=== PATIENT | female | born 1940 | race Caucasian/White ===

== ENCOUNTER → 2018-09-13 | Outpatient (CLI) | payer OTHER, BC | LOC: FIMAGING 09:27 | PROVIDERS: ATTEND Orthopaedic Surgery | DX: Z01.818 Encounter for other preprocedural examination (principal); M17.12 Unilateral primary osteoarthritis, left knee ==

== ENCOUNTER 2018-10-07 05:24 | Inpatient (IN) | payer OTHER, BC ==
[2018-10-07] MEDS ORDERED: DEXAMETHASONE 4 MG/ML VIAL IVP ONE (06:00)
[2018-10-07] MEDS ORDERED: ceFAZolin 2 GM/DEXTROSE 100 ML IV ONE (06:00)
[2018-10-07] MEDS ORDERED: ROPIVACAINE 0.2% 80 MG, EPINEPHrine 0.2 MG, KETOROLAC TROMETHAMINE 30 MG in SYRINGE 0 ML IU ONE (06:00)
[2018-10-07] MEDS ORDERED: TRANEXAMIC ACID 3,000 MG in NS (SYRINGE) 50 ML IRR ONE (06:00)
[2018-10-07] MEDS ORDERED: ACETAMINOPHEN 325 MG TAB PO ONE (06:00)
[2018-10-07] MEDS ORDERED: FAMOTIDINE 20 MG TAB PO ONE (06:00)
[2018-10-07] MEDS ORDERED: LR 1,000 ML IV ONE (06:01)
[2018-10-07] MEDS ORDERED: LIDOCAINE 1% 2 ML INJ ID PRN (06:01)
--- NOTE | 2018-10-07 06:18 | PDHPUP ---
History & Physical Update H&P update statement: This history and physical update is based on an assessment of the patient which was completed after admission or registration (within 24 hours), but prior to the surgery/procedure. H&P update: H&P reviewed & patient examined, no change in patient's condition since H&P completed
--- NOTE | 2018-10-07 06:48 | PDANEPAE ---
ANE History of Present Illness Knee OA ANE Past Medical History - Cardiovascular History Hx Hypertension: No Hx Arrhythmias: No Hx Chest Pain: No Hx Coronary Artery / Peripheral Vascular Disease: No Hx CHF / Valvular Disease: No Hx Palpitations: No - Pulmonary History Hx COPD: No Hx Asthma/Reactive Airway Disease: No Hx Recent Upper Respiratory Infection: No Hx Oxygen in Use at Home: No Hx Sleep Apnea: No Sleep Apnea Screening Result - Last Documented: Negative - Neurologic History Hx Cerebrovascular Accident: No Hx Seizures: No Hx Dementia: No - Endocrine History Hx Diabetes: No - Renal History Hx Renal Disorders: No - Liver History Hx Hepatic Disorders: No - Neurological & Psychiatric Hx Hx Neurological and Psychiatric Disorders: No - Cancer History Hx Cancer: No - Congenital Disorder History Hx Congenital Disorders: No - GI History Hx Gastrointestinal Disorders: No - Other Health History Other Health History: WEARS SUPPORT HOSE FOR POOR CIRCULATION IN LEGS. RECENT VAG BURNING - USED OTC CREAM - Chronic Pain History Chronic Pain: Yes (ASHWINI KNEE PAIN) - Surgical History Prior Surgeries: HYSTERECTOMY ANE Review of Systems Review of Systems: - Exercise capacity METS (RN): 5 METS ANE Patient History - Allergies Allergies/Adverse Reactions: adhesive tape Allergy (Verified 09/24/18 17:19) SKIN TEARS EASILY W/TAPE - Home Medications Home Medications: Cholecalciferol Vit D3 [Vitamin D3 2000 units tab (OTC)] 10,000 units PO DAILY@ 12 09/09/18 [Last Taken 09/23/18] Cyclobenzaprine [Flexeril 10 MG (*)] 10 mg PO TID PRN 09/09/18 [Last Taken 09/23] Estrogens,Conjugated [Premarin Vaginal (*)] 1 ambrocio VG Q3D 09/09/18 [Last Taken ] Herbals/Supplements -Info Only 1 ea PO DAILY 09/09/18 [Last Taken 10/04/18] Ibuprofen [Motrin (*)] 600 mg PO BID@06,12 09/09/18 [Last Taken 09/30/18] Meloxicam 15 mg PO HS 09/09/18 [Last Taken 09/30/18] Multivitamins [Multivitamin (*)] 1 each PO DAILY 09/09/18 [Last Taken 09/23/18] Tetrahydrozoline 0.05% [Visine (*)] 1 drop EACHEYE BID 09/09/18 [Last Taken 21:00] Vitamin B Complex [Vitamin B Complex (OTC)] 1 each PO DAILY@12 09/09/18 [Last Taken 09/23/18] - NPO status NPO Status: no food or drink >8 hours NPO Since - Liquids (Date): 10/07/18 NPO Since - Liquids (Time): 06:15 NPO Since - Solids (Date): 10/06/18 NPO Since - Solids (Time): 22:00 - Anes Hx Anes Hx: no prior problems (No prior RA) - Smoking Hx Smoking Status: Never smoked - Family Anes Hx Family Hx Anesthesia Complications: NEG ANE Labs/Vital Signs - Vital Signs Blood Pressure: 134/93 Heart Rate: 85 Respiratory Rate: 7 O2 Sat (%): 94 Height: 170.18 cm Weight: 95.254 kg ANE Physical Exam - Airway Neck exam: FROM Mallampati Score: Class 2 Mouth exam: dentures - Pulmonary Pulmonary: no respiratory distress - Cardiovascular Cardiovascular: regular rate and rhythym - ASA Status ASA Status: II ANE Anesthesia Plan Anesthesia Plan: MAC, spinal Regional Anesthesia: adductor canal FNB
[2018-10-07] MEDS ORDERED: TRANEXAMIC ACID 3,000 MG/50 ML BAG IRR ONE (06:51)
[2018-10-07] MEDS ORDERED: MIDAZOLAM 2 MG/2 ML VIAL IVP ONE (06:59)
[2018-10-07] MEDS ORDERED: MIDAZOLAM 2 MG/2 ML VIAL ONE (06:59)
[2018-10-07] MEDS ORDERED: PROPOFOL/EMULSION 500 MG/50 ML BOTTLE IV ONE ×2 (07:04→07:54)
[2018-10-07] MEDS ORDERED: BUPIVACAINE/DEXTROSE 7.5MG/ML 2 ML SPINAL AMP SP ONE (07:05)
[2018-10-07] MEDS ORDERED: LIDOCAINE 2% 5 ML SDV ONE (07:09)
[2018-10-07] MEDS ORDERED: ROPIVACAINE HCL 150 MG/30 ML INJ ONE (07:48)
[2018-10-07] MEDS ORDERED: ONDANSETRON 4 MG/2 ML VIAL IVP PRN ×2 (07:53→08:39)
[2018-10-07] MEDS ORDERED: NALOXONE HCL 0.4 MG/ML INJ IVP PRN (07:53)
[2018-10-07] MEDS ORDERED: LACTULOSE 20 GM/30 ML UDCUP PO PRN (08:39)
[2018-10-07] MEDS ORDERED: PROMETHAZINE HCL 25 MG/ML INJ IVP PRN (08:39)
[2018-10-07] MEDS ORDERED: diphenhydrAMINE 25 MG CAP PO PRN (08:39)
[2018-10-07] MEDS ORDERED: TEMAZEPAM 15 MG CAP PO PRN (08:39)
[2018-10-07] MEDS ORDERED: DIPHENOXYLATE/ATROPINE LOMOTIL 1 TAB PO PRN (08:39)
[2018-10-07] MEDS ORDERED: METOCLOPRAMIDE 10 MG/2 ML VIAL IVP PRN (08:39)
[2018-10-07] MEDS ORDERED: BISACODYL 10 MG SUPP PR PRN (08:39)
[2018-10-07] MEDS ORDERED: ONDANSETRON DISINTEGRATING 4 MG TAB PO PRN (08:39)
[2018-10-07] MEDS ORDERED: CYCLOBENZAPRINE 10 MG TAB PO PRN ×2 (08:39→08:42)
[2018-10-07] MEDS ORDERED: POLYETHYLENE GLYCOL 3350 17 GM PKT PO PRN (08:39)
[2018-10-07] MEDS ORDERED: PROMETHAZINE HCL 25 MG SUPPR PR PRN (08:39)
[2018-10-07] MEDS ORDERED: MAGNESIUM HYDROXIDE 30 ML UDCUP PO PRN (08:39)
--- NOTE | 2018-10-07 08:39 | POSTOPPROG ---
Post Op Note Date of Operation: 10/07/18 Surgeon: Mabel Ennis Brush And Broom Clipper: connie ennis PA-C Anesthesiologist: dr. loomis Anesthesia: Spinal, Other (Specify) (adductor canal block) Pre-op Diagnosis: left knee OA Post-op Diagnosis: same Indication: left knee pain Procedure: L TKA robot assisted Findings: severe knee OA Inf/Abcess present in the surg proc area at time of surgery?: No EBL: 50-100
--- NOTE | 2018-10-07 08:52 | POSTANESTH ---
Post Anesthetic Evaluation Cardiovascular Status: Similar to Pre-Op Cond Respiratory Status: Similar to Pre-op Cond. Level of Consciousness/Mental Status: Alert and Oriented Pain Control: Adequate, Prn Tx Ordered Nausea/Vomiting Control: Adequate, Prn Tx Ordered Complications Possibly Related to Anesthesia: None Noted (AC block done in PACU without diff.)
[2018-10-07] MEDS ORDERED: LR 1,000 ML IV SCH (09:00)
[2018-10-07] MEDS ORDERED: fentaNYL 100 MCG/2 ML INJ ONE (09:14)
[2018-10-07] MEDS ORDERED: oxyCODONE IR 5 MG TAB ONE (09:14)
[2018-10-07] MEDS ORDERED: HYDROmorphONE/DILAUDID 2 MG/ML INJ ONE (09:14)
[2018-10-07] MEDS: fentaNYL 100 MCG/2 ML INJ IVP PRN ×2 (09:19→09:29)
[2018-10-07] MEDS: HYDROmorphONE/DILAUDID 2 MG/ML INJ IVP PRN ×2 (09:22→09:30)
[2018-10-07] MEDS: SENNOSIDES/DOCUSATE SODIUM TAB PO SCH ×2 (11:19→20:38)
[2018-10-07] MEDS: TETRAHYDROZOLINE 0.05% EACHEYE SCH ×2 (11:21→20:52)
--- NOTE | 2018-10-07 12:09 | PDMN ---
Medical Necessity Medical necessity: Pt meets IP criteria as of 10/07/2018 per PA for L TKA; los > 2 mn due to advanced age and pain control.
[2018-10-07] MEDS: ACETAMINOPHEN 325 MG TAB PO SCH ×3 (12:17→23:51)
[2018-10-07] MEDS: oxyCODONE IR 5 MG TAB PO PRN ×2 (14:48→20:41)
[2018-10-07] MEDS: ceFAZolin 2 GM/DEXTROSE 100 ML IV SCH ×2 (14:59→23:50)
[2018-10-07] MEDS: ASPIRIN 81 MG CHEWABLE TAB PO SCH (20:38)
[2018-10-07] MEDS: FAMOTIDINE 20 MG TAB PO SCH (20:38)
[2018-10-08] MEDS: ACETAMINOPHEN 325 MG TAB PO SCH ×2 (04:55→11:56)
[2018-10-08 07:47] VITALS: BP 119/76
--- NOTE | 2018-10-08 08:36 | GOP ---
DATE OF OPERATION: 10/07/2018 SURGEON: Olivia Vaughan MD HOT DOG VENDOR: Kiara Vaughan, JOVAN. ANESTHESIA: Spinal. PREOPERATIVE DIAGNOSIS: Left knee osteoarthritis. POSTOPERATIVE DIAGNOSIS: Left knee osteoarthritis. PROCEDURE PERFORMED: Left total knee arthroplasty with computer navigation, robotic assist. FINDINGS: ESTIMATED BLOOD LOSS: 30 cc. INDICATIONS: The patient is a 78-year-old female with severe and progressive pain and deformity of t he left knee unresponsive to conservative care. The risks and benefits of surgical intervention were explained in detail. DESCRIPTION OF PROCEDURE: The patient was brought to the operative room and placed on the table in t he supine position. Spinal anesthesia was induced without difficulty. A pneumatic tourniquet was appl ied about the left proximal thigh, and the leg was prepped and draped in a sterile fashion. The leg h older was applied. After exsanguination by elevation the tourniquet was inflated to 250 mmHg. Incision was made anterior medial from the tibial tuberosity to a point 2 cm proximal to the superior pole of the patella. Medial parapatellar arthrotomy was carried out from the superior pole of the pa tella and posteriorly in line with the fibers of the Type II VMO. The medial collateral ligament was elevated and the infrapatellar fat pad was resected. The patella was everted and the articular surface was excised. A 32 mm patellar button was placed. Attention was turned first to the distal aspect of the femur. After exposure of the femur, 2 half pi ns were placed for fixation of the femoral array. In a similar fashion, 2 pins were placed anteromed ial on the tibia for fixation of the tibial array. External land marking and registration of the hip center were performed without difficulty. Internal femoral and tibial registration was carried out without difficulty and the femoral and tibial checkpoints were placed and verified for accuracy. Attention was turned to the femur. The foot print for the size 4 femoral component was cut with the saw using the [employer] robotic system and verified for accuracy against the CT based plan. In a similar f ashion, the saw was used to cut the footprint for the size 5 tibial component using the [employer] system an d verified for accuracy against the CT based plan. The tibial articular surface was excised without d ifficulty, followed by the intercondylar box cut. The knee was extended and the remnants of the medial and lateral meniscus were excised. The posterior capsule was injected with ropivacaine, epinephrine and Toradol. A size 5 tibial tray was positioned . Trial reduction was then carried out. There was excellent range of motion, alignment, and stability using the 5 x 9 mm polyethylene. All trials were then removed. The joint was thoroughly irrigated and carefully dried. The press-fit c omponents were implanted. The permanent 9 mm polyethylene was placed without difficulty. The tourniquet was deflated and all bleeders were coagulated. The wound was thoroughly irrigated and closed using interrupted sutures of 2-0 Vicryl for the joint capsule. The subcu was closed with 3-0 V icryl and the skin with 4-0 Monocryl. Dermabond and Steri-Strips were applied followed by a compress ida dressing. The patient was then moved from the operating room to the recovery room in good conditi on, having tolerated the procedure well. PATHOLOGY: Severe tricompartmental osteoarthritis. /[id number]/MODL
[2018-10-08] MEDS: ASPIRIN 81 MG CHEWABLE TAB PO SCH (08:45)
[2018-10-08] MEDS: FAMOTIDINE 20 MG TAB PO SCH (08:46)
[2018-10-08] MEDS: SENNOSIDES/DOCUSATE SODIUM TAB PO SCH (08:46)
[2018-10-08] MEDS: oxyCODONE IR 5 MG TAB PO PRN (08:52)
--- NOTE | 2018-10-08 09:57 | ASDISCHSUM ---
Discharge Information Plan Status:Home with No Needs Medically Cleared to Leave:10/07/2018 Discharge Date:10/07/2018 CM D/C Disposition:Home, Routine, Self-Care ADT D/C Disposition:Home, Routine, Self-Care Projected Discharge Date:10/07/2018 Transportation at D/C: Discharge Delay Reason: Follow-Up Date:10/07/2018 Discharge Slot: Final Diagnosis: Placement Information Patient Contact Information Contact Name:SONIYA Relationship:Dirk Address: City: [place] Phone: State/Zip Code: Email: Financial Information Financial Class:Medicare Primary Plan Desc:MEDICARE INPATIENT Primary Plan Number:[id number] Secondary Plan Desc: OUT OF [facility] Secondary Plan Number:[id number] Assessment Information LACE LACE Length of stay for Answers: 1 day current admission Acuity / Level of Answers: Yes Care: Did the patient have an inpatient admission? Comorbidities - select Answers: Opioid dependence all that apply / Chronic pain # of Emergency department Answers: 0 visits in the last 6 months Score: 8 Date Signed: 10/08/2018 09:55 AM Electronically Signed By:Kadie Núñez RN Case Management Discharge Plan Note Case Management Discharge Discharge Order Complete? Answers: Yes Discharge Comments Notes: 10/08/2018 Case Management Note There are no case management d/c needs identified. Pt to discharge home with follow up as directed. Date Signed: 10/08/2018 09:56 AM Electronically Signed By:Kadie Núñez RN Intervention Information Intervention Type:*Incorrect Registration Date of Service:10/07/2018 12:05 PM Patient Type:Observation Staff Member:Keyanna Armas Hours: Discipline: Severity: Comment: incorrect registration on [facility]
[2018-10-08] MEDS: TETRAHYDROZOLINE 0.05% EACHEYE SCH (10:51)
--- NOTE | 2018-10-08 11:14 | SOAPPROG ---
SOAP Progress Note Assessment/Plan: Assessment: Patient is doing well POD 1 s/p L TKA Pain management: pain is well controlled on oral pain meds. VTE ppx: recommend aspirin 81 mg BID for 4 weeks, cont SUJATHA and SCDs D/c planning: Patient has done better than anticipated. Pain has been minimal and patient has tolerated narcotic pain meds well. Patient would prefer to go home today. Ok for discharge to home if patient is released from PT Plan: 10/08/18 11:13 Subjective: Siobhan is doing well today, denies SOB, chest pain and N/V. Objective: Vital Signs Temp Pulse Resp BP Pulse Ox 36.8 C 78 16 119/76 95 10/08/18 07:46 10/08/18 07:46 10/08/18 07:46 10/08/18 07:46 10/08/18 07:46 Laboratory Results 10/08/18 04:47 10/08/18 04:47 10/07/18 10/08/18 10/09/18 05:59 05:59 05:59 Intake Total 1050 263 Output Total 950 Balance 100 263 LLE: incision dressing is clean and dry, NVI, +pf/df ICD10 Worksheet Patient Problems: Problems Problem Status Onset Primary localized osteoarthritis of left knee Acute
== END 2018-10-08 12:23 | disposition home or self-care (01) | DRG 470 ==
LOC: F3E 05:24 → OBSVTOIN 08:42 → F3N 09:51
PROVIDERS: ADMIT Orthopaedic Surgery; ATTEND Orthopaedic Surgery
DX: M17.12 Unilateral primary osteoarthritis, left knee (principal)
CPT/HCPCS: 97116-GP; 97161-GP; 97530-GP; G8978-GP-CI; G8979-GP-CH; G8979-GP-CI; G8980-GP-CI; J0171; J0690; J1100; J1170; J1885; J2250; J2704; J2795; J3010

== ENCOUNTER → 2018-11-18 | Outpatient (CLI) | payer BC, OTHER | END | disposition home or self-care (01) | LOC: FIMAGING 08:35 | PROVIDERS: ATTEND Orthopaedic Surgery | DX: M17.11 Unilateral primary osteoarthritis, right knee (principal) ==

== ENCOUNTER 2018-12-04 06:25 | Inpatient (IN) | payer BC, OTHER ==
[2018-12-04] MEDS ORDERED: ACETAMINOPHEN 325 MG TAB PO ONE (07:09)
[2018-12-04] MEDS ORDERED: FAMOTIDINE 20 MG TAB PO ONE (07:09)
[2018-12-04] MEDS ORDERED: ceFAZolin 2 GM/DEXTROSE 100 ML IV ONE (07:09)
[2018-12-04] MEDS ORDERED: DEXAMETHASONE 4 MG/ML VIAL IVP ONE (07:09)
[2018-12-04] MEDS ORDERED: LR 1,000 ML IV ONE (07:10)
[2018-12-04] MEDS ORDERED: TRANEXAMIC ACID 3,000 MG/50 ML BAG IRR ONE (07:29)
--- NOTE | 2018-12-04 07:47 | PDANEPAE ---
ANE Past Medical History - Cardiovascular History Hx Hypertension: No Hx Arrhythmias: No Hx Chest Pain: No Hx Coronary Artery / Peripheral Vascular Disease: No Hx CHF / Valvular Disease: No Hx Palpitations: No - Pulmonary History Hx COPD: No Hx Asthma/Reactive Airway Disease: No Hx Recent Upper Respiratory Infection: No Hx Oxygen in Use at Home: No Hx Sleep Apnea: No Sleep Apnea Screening Result - Last Documented: Negative - Neurologic History Hx Cerebrovascular Accident: No Hx Seizures: No Hx Dementia: No - Endocrine History Hx Diabetes: No Hypothyroid: No Hyperthyroid: No Obesity: yes, mild - Renal History Hx Renal Disorders: No - Liver History Hx Hepatic Disorders: No - Neurological & Psychiatric Hx Hx Neurological and Psychiatric Disorders: No - Cancer History Hx Cancer: No - Congenital Disorder History Hx Congenital Disorders: No - Other Health History Other Health History: WEARS SUPPORT HOSE FOR POOR CIRCULATION IN LEGS. RECENT VAG BURNING - USED OTC CREAM - Chronic Pain History Chronic Pain: Yes (ASHWINI KNEE PAIN) - Surgical History Prior Surgeries: HYSTERECTOMY ANE Review of Systems Review of Systems: - Exercise capacity Exercise capacity: limited by disability METS (RN): 4 METS ANE Patient History - Allergies Allergies/Adverse Reactions: adhesive tape Allergy (Verified 09/24/18 17:19) SKIN TEARS EASILY W/TAPE - Home Medications Home Medications: Cholecalciferol Vit D3 [Vitamin D3 2000 units tab (OTC)] 10,000 units PO DAILY@ 12 09/09/18 [Last Taken 2 Weeks Ago ~11/20/18] Cyclobenzaprine [Flexeril 10 MG (*)] 10 mg PO TID PRN 09/09/18 [Last Taken 11/27] Herbals/Supplements -Info Only 1 ea PO DAILY 09/09/18 [Last Taken 2 Weeks Ago ~ 11/20/18] Multivitamins [Multivitamin (*)] 1 each PO DAILY 09/09/18 [Last Taken 2 Weeks Ago ~11/20/18] Tetrahydrozoline 0.05% [Visine (*)] 1 drop EACHEYE BID 09/09/18 [Last Taken 2 Days Ago ~12/02/18] Vitamin B Complex [Vitamin B Complex (OTC)] 1 each PO DAILY@12 09/09/18 [Last Taken 2 Weeks Ago ~11/20/18] Estrogens,Conjugated [Premarin 0.625 MG (*)] 0.625 mg PO MOWEFR 11/18/18 [Last Taken 11/27/18] Famotidine [Pepcid 20 MG (*)] 20 mg PO BID PRN 11/18/18 [Last Taken 2 Weeks Ago ~11/20/18] Ibuprofen [Motrin (*)] 400 mg PO BID@08,12 PRN 11/18/18 [Last Taken 11/27/18] Meloxicam 15 mg PO HS PRN 11/18/18 [Last Taken 11/27/18] Sennosides/Docusate Sodium [Senokot-S] 1 tab PO BID 11/18/18 [Last Taken 2 Weeks Ago ~11/20/18] - NPO status NPO Since - Liquids (Date): 12/03/18 NPO Since - Liquids (Time): 19:30 NPO Since - Solids (Date): 12/03/18 NPO Since - Solids (Time): 17:30 - Anes Hx Anes Hx: no prior problems - Smoking Hx Smoking Status: Never smoked Marijuana use: No - Alcohol Use Alcohol Use: Rarely - Family Anes Hx Family Anes Hx: neg - N/A Family Hx Anesthesia Complications: NEG ANE Labs/Vital Signs - Vital Signs Height: 170.18 cm Weight: 92.533 kg ANE Physical Exam - Airway Neck exam: FROM Mallampati Score: Class 2 Mouth exam: poor dentition, dentures - Pulmonary Pulmonary: no respiratory distress, no rales or rhonchi, clear to auscultation - Cardiovascular Cardiovascular: regular rate and rhythym, no murmur, rub, or gallop - ASA Status ASA Status: II ANE Anesthesia Plan Anesthesia Plan: MAC, spinal Regional Anesthesia: adductor canal FNB Total IV Anesthesia: No
[2018-12-04] MEDS ORDERED: PROPOFOL/EMULSION 500 MG/50 ML BOTTLE IV ONE ×2 (08:26→09:58)
[2018-12-04] MEDS ORDERED: fentaNYL 100 MCG/2 ML INJ ONE ×2 (08:26→11:27)
[2018-12-04] MEDS ORDERED: BUPIVACAINE/DEXTROSE 7.5MG/ML 2 ML SPINAL AMP SP ONE (08:26)
[2018-12-04] MEDS ORDERED: TRANEXAMIC ACID 3,000 MG in NS (SYRINGE) 50 ML IRR ONE (08:33)
[2018-12-04] MEDS ORDERED: ROPIVACAINE 0.2% 80 MG, EPINEPHrine 0.2 MG, KETOROLAC TROMETHAMINE 30 MG in SYRINGE 0 ML IU ONE (08:33)
[2018-12-04] MEDS ORDERED: MIDAZOLAM 2 MG/2 ML VIAL ONE (09:06)
[2018-12-04] MEDS ORDERED: MIDAZOLAM 2 MG/2 ML VIAL IVP ONE ×2 (09:49→10:00)
[2018-12-04] MEDS ORDERED: PHENYLEPHRINE HCL 100 MCG/ML SYR IVP PRN (09:49)
[2018-12-04] MEDS ORDERED: NALOXONE HCL 0.4 MG/ML INJ IVP PRN (09:49)
[2018-12-04] MEDS ORDERED: LR 500 ML IV PRN (09:49)
[2018-12-04] MEDS ORDERED: ONDANSETRON 4 MG/2 ML VIAL IVP PRN ×2 (09:49→10:43)
[2018-12-04] MEDS ORDERED: ROPIVACAINE HCL 100 MG/20 ML INJ ONE (09:56)
[2018-12-04] MEDS ORDERED: METOCLOPRAMIDE 10 MG/2 ML VIAL IVP PRN (10:43)
[2018-12-04] MEDS ORDERED: BISACODYL 10 MG SUPP PR PRN (10:43)
[2018-12-04] MEDS ORDERED: ONDANSETRON DISINTEGRATING 4 MG TAB PO PRN (10:43)
[2018-12-04] MEDS ORDERED: MAGNESIUM HYDROXIDE 30 ML UDCUP PO PRN (10:43)
[2018-12-04] MEDS ORDERED: PROMETHAZINE HCL 25 MG SUPPR PR PRN (10:43)
[2018-12-04] MEDS ORDERED: LACTULOSE 20 GM/30 ML UDCUP PO PRN (10:43)
[2018-12-04] MEDS ORDERED: PROMETHAZINE HCL 25 MG/ML INJ IVP PRN (10:43)
[2018-12-04] MEDS ORDERED: POLYETHYLENE GLYCOL 3350 17 GM PKT PO PRN (10:43)
[2018-12-04] MEDS ORDERED: diphenhydrAMINE 25 MG CAP PO PRN (10:43)
[2018-12-04] MEDS ORDERED: DIPHENOXYLATE/ATROPINE LOMOTIL 1 TAB PO PRN (10:43)
[2018-12-04] MEDS ORDERED: TEMAZEPAM 15 MG CAP PO PRN (10:43)
--- NOTE | 2018-12-04 10:43 | POSTOPPROG ---
Post Op Note Date of Operation: 12/04/18 Surgeon: Mabel Vaughan Chain Mortiser Operator: Kiara Vaughan and Connie Garcia PA-C Anesthesiologist: Dr. Sherman Anesthesia: Spinal, Other (Specify) (adductor canal block) Pre-op Diagnosis: right knee OA Post-op Diagnosis: same Indication: right knee pain Procedure: right TKA Findings: severe OA of right knee Inf/Abcess present in the surg proc area at time of surgery?: No EBL: 50-100
[2018-12-04] MEDS ORDERED: LR 1,000 ML IV SCH (11:00)
[2018-12-04] MEDS ORDERED: HYDROCODONE/APAP 5/325 TAB PO PRN (11:27)
[2018-12-04] MEDS ORDERED: oxyCODONE IR 5 MG TAB PO PRN (11:27)
[2018-12-04] MEDS ORDERED: fentaNYL 100 MCG/2 ML INJ IVP PRN (11:27)
[2018-12-04] MEDS ORDERED: ACETAMINOPHEN 500 MG TAB PO PRN (11:27)
[2018-12-04] MEDS ORDERED: ACETAMINOPHEN 325 MG TAB ONE (11:27)
[2018-12-04] MEDS: ACETAMINOPHEN 325 MG TAB PO SCH ×2 (11:28→17:36)
--- NOTE | 2018-12-04 11:42 | POSTANESTH ---
Post Anesthetic Evaluation Cardiovascular Status: Normal, Stable, Similar to Pre-Op Cond Respiratory Status: Normal, Stable, Similar to Pre-op Cond. Level of Consciousness/Mental Status: Can Participate in Eval Pain Control: Adequate, Prn Tx Ordered Nausea/Vomiting Control: Adequate, Prn Tx Ordered Complications Possibly Related to Anesthesia: None Noted
--- NOTE | 2018-12-04 13:44 | PDMN ---
Medical Necessity Medical necessity: Pt meets inpt criteria per MD order and [facility] S-700, Knee arthroplasty, total. 78 y/o w/R knee OA, admitted for R TKA and post-op care, w/ comorbidities of adv age, mild obesity, hx slow clotting.
[2018-12-04] MEDS: CYCLOBENZAPRINE 10 MG TAB PO PRN (15:25)
[2018-12-04] MEDS: oxyCODONE IR 5 MG TAB PO PRN ×2 (17:26→20:49)
[2018-12-04] MEDS: ceFAZolin 2 GM/DEXTROSE 100 ML IV SCH (17:27)
[2018-12-04] MEDS: FAMOTIDINE 20 MG TAB PO SCH (20:48)
[2018-12-04] MEDS: ASPIRIN 81 MG CHEWABLE TAB PO SCH (20:48)
[2018-12-04] MEDS: SENNOSIDES/DOCUSATE SODIUM TAB PO SCH (20:49)
[2018-12-04] MEDS: TETRAHYDROZOLINE 0.05% 15 ML OPHT.BTL EACHEYE SCH (20:50)
[2018-12-05] MEDS: ACETAMINOPHEN 325 MG TAB PO SCH ×3 (00:13→11:17)
[2018-12-05] MEDS: oxyCODONE IR 5 MG TAB PO PRN ×2 (00:13→11:17)
[2018-12-05] MEDS: ceFAZolin 2 GM/DEXTROSE 100 ML IV SCH (00:14)
[2018-12-05] MEDS: CYCLOBENZAPRINE 10 MG TAB PO PRN (05:20)
[2018-12-05] MEDS: SENNOSIDES/DOCUSATE SODIUM TAB PO SCH (09:02)
[2018-12-05] MEDS: ASPIRIN 81 MG CHEWABLE TAB PO SCH (09:02)
[2018-12-05] MEDS: FAMOTIDINE 20 MG TAB PO SCH (09:02)
[2018-12-05] MEDS: TETRAHYDROZOLINE 0.05% 15 ML OPHT.BTL EACHEYE SCH (09:03)
--- NOTE | 2018-12-05 10:43 | SOAPPROG ---
SOAP Progress Note Assessment/Plan: Assessment: Patient is doing well POD 1 s/p right TKA Pain management: pain is well controlled on oral pain meds. VTE ppx: recommend 81 mg aspirin morning and evening for 4 weeks, cont SUJATHA and SCDs Anemia: level is expected initially postop. Asymptomatic. Continue to monitor. Pt. required straight cath initially, but was later able to void without cath. D/c planning:patient has done much better than anticipated. Patient is stable, BP stable, pain well controlled and patient is eager for discharge to home. May d/c to home today pending release from PT Plan: 12/05/18 10:40 Subjective: No nausea, vomiting, shortness of breath or chest pain. Pain well-controlled. Objective: Vital Signs Temp Pulse Resp BP Pulse Ox 36.3 C 86 19 154/87 H 95 12/05/18 07:35 12/05/18 07:35 12/05/18 07:35 12/05/18 07:35 12/05/18 07:35 Laboratory Results 12/05/18 04:44 12/04/18 12/05/18 12/06/18 05:59 05:59 05:59 Intake Total 1750 Output Total 2330 200 Balance -580 -200 RLE: incision dressing clean and dry, NVI, positive DF/PF ICD10 Worksheet Patient Problems: Problems Problem Status Onset Primary localized osteoarthritis of right knee Acute Primary localized osteoarthritis of left knee Acute
[2018-12-05 11:37] VITALS: BP 129/82
--- NOTE | 2018-12-05 21:27 | GOP ---
DATE OF OPERATION: 12/04/2018 SURGEON: Olivia Vaughan MD USER INTERFACE ARTIST: JOVAN Ni ANESTHESIA: Spinal. PREOPERATIVE DIAGNOSIS: Right knee osteoarthritis. POSTOPERATIVE DIAGNOSIS: Right knee osteoarthritis. PROCEDURE PERFORMED: Right total knee arthroplasty with computer navigation, robotic assist. FINDINGS: ESTIMATED BLOOD LOSS: 30 cc. INDICATIONS: The patient is a 78-year-old female with severe and progressive pain and deformity of the right knee unresponsive to conservative care. The risks and benefits of surgical intervention were explained in detail. DESCRIPTION OF PROCEDURE: The patient was brought to the operative room and placed on the table in the supine position. Spinal anesthesia was induced without difficulty. A pneumatic tourniquet was applied about the right proximal thigh, and the leg was prepped and draped in a sterile fashion. The leg ding was applied. After exsanguination by elevation the tourniquet was inflated to 250 mmHg. Incision was made anterior medial from the tibial tuberosity to a point 2 cm proximal to the superior pole of the patella. Medial parapatellar arthrotomy was carried out from the superior pole of the patella and posteriorly in line with the fibers of the Type II VMO. The medial collateral ligament was elevated and the infrapatellar fat pad was resected. The patella was everted and the articular surface was excised. A 37 mm patellar button was placed. Attention was turned first to the distal aspect of the femur. After exposure of the femur, 2 half pins were placed for fixation of the femoral array. In a similar fashion, 2 pins were placed anteromedial on the tibia for fixation of the tibial array. External land marking and registration of the hip center was performed without difficulty. Internal femoral and tibial registration was carried out without difficulty and the femoral and tibial checkpoints were placed and verified for accuracy. Attention was turned to the femur. The foot print for the size 4 femoral component was cut with the saw using the [employer] robotic system and verified for accuracy against the CT based plan. In a similar fashion, the saw was used to cut the footprint for the size 5 tibial component using the [employer] system and verified for accuracy against the CT based plan. The tibial articular surface was excised without difficulty, followed by the intercondylar box cut. The knee was extended and the remnants of the medial and lateral meniscus were excised. The posterior capsule was injected with ropivacaine, epinephrine and Toradol. A size 5 tibial tray was positioned. Trial reduction was then carried out. There was excellent range of motion, alignment, and stability using the 5 x 11 mm polyethylene. All trials were then removed. The joint was thoroughly irrigated and carefully dried. The press-fit components were implanted. The permanent 5 x 11 mm polyethylene was placed without difficulty. The tourniquet was deflated and all bleeders were coagulated. The wound was thoroughly irrigated and closed using interrupted sutures of 2-0 Vicryl for the joint capsule. The subcu was closed with 3-0 Vicryl and the skin with 4-0 Monocryl. Dermabond and Steri-Strips were applied followed by a compressive dressing. The patient was then moved from the operating room to the recovery room in good condition, having tolerated the procedure well. PATHOLOGY: Severe tricompartmental osteoarthritis. /[id number]/MODL MTDD
--- NOTE | 2018-12-08 10:21 | GDS ---
[f rep st] DISCHARGE SUMMARY ADMISSION DIAGNOSIS: Right knee osteoarthritis. DISCHARGE DIAGNOSIS: Right knee osteoarthritis. PROCEDURE: Right total knee arthroplasty, robot-assisted. VTE PROPHYLAXIS: Recommend aspirin 81 mg twice daily for 4 weeks. BRIEF DESCRIPTION OF HOSPITAL STAY: Patient was admitted for an elective joint arthroplasty. The pa yamil tolerated the procedure well and has passed physical therapy. The patient was given appropriat e antibiotic prophylaxis and venous thromboembolism prophylaxis. The patient's pain was well control led on oral pain medication, patient was holding down food, and had urinated. Decision was made to d ischarge the patient. The patient was given post-operative prescriptions pre-operatively. PLAN: Followup scheduled with Dr. Vaughan's office on December 21, at 11:15. /[id number]/MODL
== END 2018-12-05 12:12 | disposition home or self-care (01) | DRG 470 ==
LOC: F3N 06:25 → OBSVTOIN 10:49 → F3N 12:34
PROVIDERS: ADMIT Orthopaedic Surgery; ATTEND Orthopaedic Surgery
DX: M17.11 Unilateral primary osteoarthritis, right knee (principal); G89.29 Other chronic pain; Z90.710 Acquired absence of both cervix and uterus
CPT/HCPCS: 97110-GP; 97116-GP; 97161-GP; J0171; J0690; J1100; J1885; J2250; J2704; J2795; J3010